=== PATIENT | female | born 1975 | race Caucasian/White ===

== ENCOUNTER → 2018-11-03 | Outpatient (REF) | payer OTHER ==
[2018-11-03 20:21] LABS: BASO % 0.8 % (0.0-1.0); EOS % 0.2 % (0.0-3.0); HEMATOCRIT 34.4 % (36.0-47.0); HEMOGLOBIN 10.4 g/dl (12.0-15.5); LYMPH # 1.7 10^3/uL (1.5-4.5); LYMPH % 35.2 % (24.0-44.0); MEAN CORPUSCULAR HEMOGLOBIN 27.8 pg (27.0-33.0); MEAN CORPUSCULAR HGB CONC 30.2 g/dl (32.0-36.5); MONO # 0.4 10^3/uL (0.0-0.8); MONO % 8.6 % (0.0-5.0); NEUTROPHILS # 2.6 10^3/uL (1.8-7.7); PLATELET COUNT, AUTOMATED 246 10^3/uL (150-450); RED BLOOD COUNT 3.74 10^6/uL (4.00-5.40); WHITE BLOOD COUNT 4.8 10^3/uL (4.0-10.0)
[2018-11-03 20:44] LABS: ALBUMIN 3.2 GM/DL (3.2-5.2); ALT/SGPT 22 U/L (12-78); BILIRUBIN,TOTAL 0.1 MG/DL (0.2-1.0); BLOOD UREA NITROGEN 14 MG/DL (7-18); CALCIUM LEVEL 8.2 MG/DL (8.5-10.1); CARBON DIOXIDE LEVEL 26 MEQ/L (21-32); CHLORIDE LEVEL 109 MEQ/L (98-107); CREATININE FOR GFR 0.74 MG/DL (0.55-1.30); GLOMERULAR FILTRATION RATE > 60.0 (>58); GLUCOSE, FASTING 65 MG/DL (70-100); POTASSIUM SERUM 3.9 MEQ/L (3.5-5.1); RHEUMATOID FACTOR QUANT < 10.0 IU/ML (<15.0); SODIUM LEVEL 141 MEQ/L (136-145); TOTAL PROTEIN 6.4 GM/DL (6.4-8.2)
[2018-11-03 20:49] LABS: ERYTHROCYTE SEDIMENTATION RATE 23 mm/hr (0-20)
== END ==
LOC: M SFHCPLAZ 14:53 → M SFHCADAM 14:59
PROVIDERS: ATTEND Internal Medicine Rheumatology
DX: M19.90 Unspecified osteoarthritis, unspecified site (principal)

== ENCOUNTER → 2018-11-03 | Outpatient (CLI) | payer OTHER ==
--- NOTE | 2018-11-04 02:27 | REP ---
Clinical: Arthritis. Technique: AP, lateral, bilateral oblique views of the left elbow. Findings: Osseous structures and joint spaces are essentially normal for age. No overt osteoarthritic degenerative changes are appreciated. No obvious swelling or effusion. Impression: Age-appropriate left elbow radiographs. Electronically Signed by Josafat Mena MD 11/04/2018 02:19 A
--- NOTE | 2018-11-04 02:29 | REP ---
Clinical: Arthritis. Technique: Four views of the bilateral sacroiliac joints. Findings: The bilateral sacroiliac joints are essentially symmetric and age appropriate. Very subtle periarticular sclerosis may reflect a very mild early sacroiliitis. No osteophytosis or effusion. Impression: Very subtle early sacroiliitis cannot be excluded. Electronically Signed by Josafat Mena MD 11/04/2018 02:20 A
--- NOTE | 2018-11-04 02:42 | REP ---
Clinical: Arthritis. Technique: AP, lateral, bilateral oblique and sunrise views of the right and left knee. Findings: Right knee demonstrates a very subtle increase sclerosis along the tibial plateau and patellar contour with minimal medial and patellofemoral joint space narrowing. No acute fracture or dislocation. No effusion. Left knee demonstrates evidence for prior ACL repair along with mild arthritic changes including subtle increase sclerosis along the tibial plateau and patellar contour with medial and patellofemoral joint space narrowing. Early spurring/osteophyte formation along the medial tibial plateau and subtle spurring to the tibial spines noted. No acute fracture or dislocation. 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 Evidence of prior left ACL repair. Electronically Signed by Josafat Mena MD 11/04/2018 02:32 A
--- NOTE | 2018-11-04 02:45 | REP ---
Clinical: Arthritis. Technique: Single AP weightbearing view of the right and left knee. Findings: Evidence of prior left ACL repair. Mild increased sclerosis to the tibial plateau is noted bilaterally. Very subtle right medial joint space narrowing cannot be excluded. Impression: Possible mild right medial joint space narrowing. Electronically Signed by Josafat Mena MD 11/04/2018 02:36 A
== END ==
LOC: M ADAMS 14:54
PROVIDERS: ATTEND Internal Medicine Rheumatology
DX: M19.90 Unspecified osteoarthritis, unspecified site (principal)

== ENCOUNTER → 2021-12-25 | Outpatient (REF) | payer OTHER ==
[2021-12-25 18:06] LABS: BASO % 0.8 % (0.0-1.0); HEMATOCRIT 45.1 % (36.0-47.0); HEMOGLOBIN 14.5 g/dl (12.0-15.5); LYMPH # 1.5 10^3/uL (1.5-5.0); LYMPH % 27.8 % (24.0-44.0); MEAN CORPUSCULAR HEMOGLOBIN 31.8 pg (27.0-33.0); MEAN CORPUSCULAR HGB CONC 32.2 g/dl (32.0-36.5); MEAN CORPUSCULAR VOLUME 98.9 fl (80.0-96.0); MONO # 0.3 10^3/uL (0.0-0.8); MONO % 5.7 % (2.0-8.0); NEUTROPHILS # 3.4 10^3/uL (1.5-8.5); NEUTROPHILS % 65.1 % (36.0-66.0); PLATELET COUNT, AUTOMATED 264 10^3/uL (150-450); RED BLOOD COUNT 4.56 10^6/uL (4.00-5.40); WHITE BLOOD COUNT 5.2 10^3/uL (4.0-10.0)
[2021-12-25 18:18] LABS: APPEARANCE, URINE TURBID (CLEAR); BACTERIA, URINE AUTO NEGATIVE (NEGATIVE); BILIRUBIN, URINE AUTO NEGATIVE (NEGATIVE); BLOOD, URINE BLOOD 1+ (NEGATIVE); CALCIUM OXALATE CRYSTALS MODERATE; COLOR, URINE YELLOW (YELLOW); GLUCOSE, URINE (UA) AUTO NEGATIVE (NEGATIVE); KETONE, URINE AUTO NEGATIVE (NEGATIVE); LEUKOCYTE ESTERASE, URINE AUTO NEGATIVE (NEGATIVE); MUCUS, URINE SMALL (NEGATIVE); NITRITE, URINE AUTO NEGATIVE (NEGATIVE); PROTEIN, URINE AUTO 1+ mg/dL (NEGATIVE); RBC, URINE AUTO 4 /HPF (0-3); SPECIFIC GRAVITY URINE AUTO 1.017 (1.002-1.035); SQUAMOUS EPITHELIAL CELL UR AU 2 /HPF (0-6); WBC, URINE AUTO 1 /HPF (0-3)
[2021-12-25 18:25] LABS: ALBUMIN 3.3 GM/DL (3.2-5.2); BILIRUBIN,TOTAL 0.2 MG/DL (0.2-1.0); C REACTIVE PROTEIN QUANTITATIV 0.83 MG/DL (0.00-0.30); CALCIUM LEVEL 8.7 MG/DL (8.5-10.1); CREATININE FOR GFR 1.1 MG/DL (0.55-1.30); GLOMERULAR FILTRATION RATE 56.4 (>58); POTASSIUM SERUM 3.7 MEQ/L (3.5-5.1); TOTAL PROTEIN 6.5 GM/DL (6.4-8.2)
[2021-12-25 18:57] LABS: TOTAL PROTEIN,RANDOM URINE 47.6 MG/DL (0.0-12.0)
[2021-12-25 19:45] LABS: ERYTHROCYTE SEDIMENTATION RATE 9 mm/hr (0-20)
== END ==
LOC: M SFHCRHEU 09:01
PROVIDERS: ATTEND Internal Medicine Rheumatology
DX: M19.90 Unspecified osteoarthritis, unspecified site (principal); M25.569 Pain in unspecified knee; M25.522 Pain in left elbow; R76.8 Other specified abnormal immunological findings in serum

== ENCOUNTER → 2023-08-08 | Outpatient (CLI) | payer OTHER | LOC: M WUC 09:04 | PROVIDERS: ATTEND Internal Medicine Rheumatology | DX: M16.0 Bilateral primary osteoarthritis of hip (principal); M25.569 Pain in unspecified knee; M25.522 Pain in left elbow; R76.8 Other specified abnormal immunological findings in serum; R21 Rash and other nonspecific skin eruption; M77.31 Calcaneal spur, right foot; M77.32 Calcaneal spur, left foot ==